=== PATIENT | female | born 1970 | race Caucasian/White ===

== ENCOUNTER 2019-09-19 12:14 | Emergency (ER) | payer BC ==
[2019-09-19 12:33] VITALS: TEMP 98.9
[2019-09-19 12:45] VITALS: RESP 20
[2019-09-19 14:15] LABS: Basophils # (A) 0.1 k/uL (0-0.2); Basophils % (A) 1 %; Eosinophils # (A) 0.1 k/uL (0-0.7); Eosinophils % (A) 1 %; HCT 45.5 % (34.0-46.0); HGB 14.8 gm/dL (11.4-16.0); Lymphocytes # (A) 1.4 k/uL (1.0-4.8); Lymphocytes % (A) 11 %; MCH 29.5 pg (25.0-35.0); MCHC 32.6 g/dL (31.0-37.0); MCV 90.5 fL (80.0-100.0); Mean Platelet Volume 6.7; Monocytes # (A) 0.7 k/uL (0-1.0); Monocytes % (A) 6 %; Neutrophils # (A) 9.8 k/uL (1.3-7.7); Neutrophils % (A) 80 %; Platelet Count 287 k/uL (150-450); RBC 5.03 m/uL (3.80-5.40); RDW 13.1 % (11.5-15.5); WBC 12.2 k/uL (3.8-10.6)
[2019-09-19] MEDS ORDERED: cefTRIAXone IN SWFI 1,000 MG/10 ML SYRINGE IVP STA (14:16)
[2019-09-19] MEDS ORDERED: KETOROLAC 30 MG/ML 1 ML VIAL IVP STA (14:16)
[2019-09-19] MEDS ORDERED: DEXAMETHASONE SOD PHOSPHATE 10 MG/ML 1 ML VIAL IV STA (14:16)
--- NOTE | 2019-09-19 14:21 | ED ---
ENT HPI - General Chief complaint: ENT Stated complaint: Thyroid issues Time Seen by Provider: 09/19/19 13:02 Source: patient, RN notes reviewed, old records reviewed Mode of arrival: ambulatory Limitations: no limitations - History of Present Illness Initial comments: Patient is a 49-year-old female who presents emergency Department today with sore throat, neck swelling and pain. Patient reports that she was diagnosed with a goiter" at [facility] but she was sent home on antibiotics, but is unsure why. Patient reports after she was discharged she reports that it seems like it's worsening swelling into her neck and she's having a worsening time swallowing. Patient reports that she was treated with Augmentin. Patient states that she has had some chills, no specific fever. She reports that she did test negative for strep while at [facility]. Patient states that since being discharged she is had worsening symptoms and felt that she needed be reevaluated for second opinion. Patient is nondiabetic. She denies any dental infections. - Related Data Home Medications Medication Instructions Recorded Confirmed Amoxic-Pot Clav 875-125Mg 1 tab PO Q12HR 09/19/19 09/19/19 [Augmentin 875-125] Tylenol Liquid 15 ml PO Q4H PRN 09/19/19 09/19/19 Allergies Allergy/AdvReac Type Severity Reaction Status Date / Time No Known Allergies Allergy Verified 09/19/19 13:56 Review of Systems ROS Statement: Those systems with pertinent positive or pertinent negative responses have been documented in the HPI. ROS Other: All systems not noted in ROS Statement are negative. Past Medical History Past Medical History: Thyroid Disorder History of Any Multi-Drug Resistant Organisms: None Reported Past Surgical History: Cholecystectomy, Hysterectomy Past Psychological History: No Psychological Hx Reported Smoking Status: Current every day smoker Past Alcohol Use History: Occasional Past Drug Use History: None Reported General Exam - General Exam Comments Initial Comments: 49-year-old female. Alert and oriented. Limitations: no limitations General appearance: alert, in no apparent distress Head exam: Present: atraumatic, normocephalic, normal inspection Eye exam: Present: normal appearance, PERRL, EOMI. Absent: scleral icterus, conjunctival injection, periorbital swelling ENT exam: Present: normal exam, mucous membranes moist, other (Patient has tenderness, swelling to the anterior neck. Patient has some swelling over the left tonsil area, no significant abscess to drain on physical exam.) Neck exam: Present: tenderness (swelling voer anterior neck ). Absent: normal i nspection, meningismus, lymphadenopathy Respiratory exam: Present: normal lung sounds bilaterally. Absent: respiratory distress, wheezes, rales, rhonchi, stridor Cardiovascular Exam: Present: regular rate, normal rhythm, normal heart sounds. Absent: systolic murmur, diastolic murmur, rubs, gallop, clicks GI/Abdominal exam: Present: soft, normal bowel sounds. Absent: distended, tenderness, guarding, rebound, rigid Extremities exam: Present: normal inspection, full ROM, normal capillary refill. Absent: tenderness, pedal edema, joint swelling, calf tenderness Back exam: Present: normal inspection Neurological exam: Present: alert, oriented X3, CN II-XII intact Psychiatric exam: Present: normal affect, normal mood Skin exam: Present: warm, dry, intact, normal color. Absent: rash Course Vital Signs 09/19/19 09/19/19 09/19/19 12:28 12:45 12:50 Temperature 98.9 F Pulse Rate 86 85 Respiratory 18 20 Rate Blood Pressure 179/115 141/110 141/110 O2 Sat by Pulse 100 98 97 Oximetry 09/19/19 09/19/19 09/19/19 13:00 13:10 13:20 Temperature Pulse Rate Respiratory Rate Blood Pressure 141/110 149/100 149/100 O2 Sat by Pulse 96 96 98 Oximetry 09/19/19 09/19/19 09/19/19 13:30 13:33 13:40 Temperature Pulse Rate Respiratory 20 Rate Blood Pressure 149/100 154/111 O2 Sat by Pulse 98 97 Oximetry 09/19/19 09/19/19 09/19/19 13:50 14:00 15:00 Temperature Pulse Rate 77 76 Respiratory 20 20 Rate Blood Pressure 154/111 148/100 142/105 O2 Sat by Pulse 99 98 98 Oximetry - Reevaluation(s) Reevaluation #1: 09/19/19 15:25 CT from 09/16/2019 shows displacement of the oropharynx towards the right side with homogenous soft tissue mass involving the retropharyngeal tissues extending from the soft palate all the way down to the epiglottis. Nonvisualization of the left sublingual gland. Cannot exclude malignancy versus lymphoma. Patient's ultrasound of the thyroid shows the right lobe measures 5.7 x 2.3 x 1.9 cm. They're small spongiform nodule within the right mid lobe measuring 7 x 6 x 6 L. The left lobe of the thyroid measured 7.6 x 4.2 x 3.3 cm. There is a very hypoechoic nodule within the medial upper pole measuring 4.7 x 2.3 x 2.2 cm. This is somewhat lobulated contour and is very hypoechoic. There is advised to call nodule in the middle left lower gland measuring 5.6 x 4.5 x 3 C or abscess. Overall impression shows TR 5 nodule left upper pole as well as tear 3 nodule measuring 5.6 cm left mid gland. Ultrasound-guided kite a biopsy of both of these lesions as recommended. Medical Decision Making - Medical Decision Making 49-year-old female presents emergency department today with worsening difficulty in swallowing, sore throat and neck swelling. After requesting records, she Was treated for retropharyngeal abscess at this [facility] as well as transferred to [facility]. She was discharged diagnosed with "goiter" and also put reports that she was on antibiotics. She was discharged just one day ago, but presents with worsening swelling and pain with swallowing. She has no signs of respiratory disress at this time. On exam she does have some left- sided peritonsillar swelling concern for abscess, but not large enough to drain with needle decompression in ED. A second CT soft tissue neck was completed today and there is extensive swelling into the neck as well. Patient case was discussed with Dr. Acosta. Patient was given IV Solu-Medrol, Decadron and Toradol, and rocephin. She also will be starting to receive Unasyn. After discussing with Dr. Acosta, my attending physician, he discussed the case with on-call ENT Dr. Gamez. He recommended transferring her to a higher level of care due to the findings of the computed tomography scan showing migration of the abscess to the anterior neck above the thyroid as well. Patient was informed of these results is agreeable to transfer. Discussed with Dr. Garibay whom agrees to accept transfer. Blood cultures obtained. - Lab Data Result diagrams: 09/19/19 13:50 09/19/19 13:50 Lab Results 01/24/20 01/24/20 01/24/20 Range/Units 13:50 13:50 13:50 WBC 12.2 H (3.8-10.6) k/uL RBC 5.03 (3.80-5.40) m/uL Hgb 14.8 (11.4-16.0) gm/dL Hct 45.5 (34.0-46.0) % MCV 90.5 (80.0-100.0) fL MCH 29.5 (25.0-35.0) pg MCHC 32.6 (31.0-37.0) g/dL RDW 13.1 (11.5-15.5) % Plt Count 287 (150-450) k/uL Neutrophils % 80 % Lymphocytes % 11 % Monocytes % 6 % Eosinophils % 1 % Basophils % 1 % Neutrophils # 9.8 H (1.3-7.7) k/uL Lymphocytes # 1.4 (1.0-4.8) k/uL Monocytes # 0.7 (0-1.0) k/uL Eosinophils # 0.1 (0-0.7) k/uL Basophils # 0.1 (0-0.2) k/uL Sodium 139 (137-145) mmol/L Potassium 3.5 (3.5-5.1) mmol/L Chloride 104 (98-107) mmol/L Carbon Dioxide 27 (22-30) mmol/L Anion Gap 8 mmol/L BUN 7 (7-17) mg/dL Creatinine 0.65 (0.52-1.04) mg/dL Est GFR (CKD-EPI)AfAm >90 (>60 ml/min/1.73 sqM) Est GFR (CKD-EPI)NonAf >90 (>60 ml/min/1.73 sqM) Glucose 86 (74-99) mg/dL Plasma Lactic Acid Dilip 0.7 (0.7-2.0) mmol/L Calcium 8.4 (8.4-10.2) mg/dL Total Bilirubin 0.8 (0.2-1.3) mg/dL AST 27 (14-36) U/L ALT 31 (4-34) U/L Alkaline Phosphatase 97 (38-126) U/L Total Protein 6.0 L (6.3-8.2) g/dL Albumin 3.3 L (3.5-5.0) g/dL TSH 2.480 (0.465-4.680) mIU/L - Radiology Data Radiology results: report reviewed CT soft tissue neck shows a large hypodense collection extending from the superior right lobe of the thyroid into the prevertebral space into the left tonsillar pillar suspicious for forming abscess. Wall formation inferiorly is poorly visualized. This better visualize the tonsillar pillar. Disposition Clinical Impression: Peritonsillar abscess, Pharyngeal abscess, Failure of outpatient treatment Disposition: DC/TRNS INTERMEDIATE CARE FAC Condition: Stable Is patient prescribed a controlled substance at d/c from ED?: No Referrals: None,Stated [Primary Care Provider] - 1-2 days Time of Disposition: 16:27 - Out of Hospital Transfer - Req. Specs Out of Hospital Transfer - Requested Specifics: Other Emergency Center ([facility])
[2019-09-19 14:28] LABS: ALT 31 U/L (4-34); AST 27 U/L (14-36); African American GFR (CKD) >90 (>60 ml/min/1.73 sqM); Albumin 3.3 g/dL (3.5-5.0); Alkaline Phosphatase 97 U/L (38-126); Anion Gap 8 mmol/L; Blood Urea Nitrogen 7 mg/dL (7-17); Calcium 8.4 mg/dL (8.4-10.2); Carbon Dioxide 27 mmol/L (22-30); Chloride 104 mmol/L (98-107); Glucose 86 mg/dL (74-99); Non-African American GFR(CKD) >90 (>60 ml/min/1.73 sqM); Potassium 3.5 mmol/L (3.5-5.1); Sodium 139 mmol/L (137-145); Total Bilirubin 0.8 mg/dL (0.2-1.3)
[2019-09-19] MEDS ORDERED: AMPICILLIN-SULBACTAM 3 GM in SODIUM CHLORIDE 0.9% 100 ML IVPB STA (15:02)
--- NOTE | 2019-09-19 15:05 | CT ---
EXAMINATION TYPE: CT soft tissue neck w con DATE OF EXAM: 09/19/2019 COMPARISON: None available HISTORY: Neck swelling, dysphagia, dyspnea, history of retropharyngeal abscess CT DLP: 260 mGycm CONTRAST: Patient injected with 100 mL of Isovue 300. TECHNIQUE: Axial images at 3 mm thick sections. Reconstructed images in the coronal plane and sagitt al plane are reviewed. FINDINGS: Limited CT sections are obtained the lung apices. The lung apices appear clear. CT neck: There is some limitation in differentiating the torus tubarius and fossa of Rosenmuller. Mas ticator spaces are normal. Paranasal sinuses and mastoid air cells are clear. Parotid glands appear normal and symmetrical. Submandibular glands, are normal. Parapharyngeal spaces are somewhat effaced. There is fullness within the tonsils. On the left tonsil which has mass effect on the posterior pharynx there is a 1.1 cm hypodensity extending from the level of the angle of the jaw inferior. This extends in an irregular fashion into the prevertebral space w ith narrowing of the hypopharynx. There is poor visualization of the airway at the level of the vocal cords. Irregular hypodensity appears to extend across the midline may be as large is 5.3 x 2.7 cm. S eries 201 image 37. This extends lateral to the hyoid and appears to be effacing the superior thyroid medially In addition to the scalloping medial border of the right lobe thyroid, the thyroid is markedly enlarg ed. There is some heterogeneity to the inferior enlarged right lobe thyroid which extends in the supe rior mediastinum which is displacing the trachea to the right. No suspicious acute osseous abnormality is evident. IMPRESSIONS: 1. Large hypodense collection extending from the superior right lobe thyroid into the prevertebral sp dajuan and into the left tonsillar pillar suspicious for forming abscess. Wall formation inferiorly is p oorly visualized. This better visualized in the tonsillar pillar. Report was called to the emergency room [facility] by Dr. Rivera by telephone at 1501 hours at the time of interpretation.
[2019-09-19 15:52] VITALS: PULSE 76
[2019-09-19 17:04] VITALS: BP 157/106
== END 2019-09-19 18:09 ==
LOC: EC 12:14
DX: J36 Peritonsillar abscess (principal); Z53.9 Procedure and treatment not carried out, unspecified reason; F17.200 Nicotine dependence, unspecified, uncomplicated
CPT/HCPCS: 36415; 80053; 84443; 83605; 85025; 87040; 70491; 99285; 96365; 96375 ×3; J1100; J0696; J1885; J0295; Q9967

== ENCOUNTER 2022-04-11 15:46 | Emergency (ER) | payer BC ==
[2022-04-11 16:15] VITALS: BP 150/97; PULSE 87; RESP 18; TEMP 98.7
[2022-04-11] MEDS ORDERED: KETOROLAC 15 MG/ML 1 ML VIAL IM STA (19:22)
[2022-04-11] MEDS ORDERED: HYDROcodone/APAP 5-325MG 1 EACH TAB PO STA (19:22)
--- NOTE | 2022-04-11 19:26 | ED ---
Back Pain HPI - General Chief Complaint: Back Pain/Injury Stated Complaint: hip & back pain Time Seen by Provider: 04/11/22 19:02 Source: patient, RN notes reviewed - History of Present Illness Initial Comments: This is a pleasant 51-year-old female who fell about 3 weeks ago was seen at [facility]. Patient ended up having a computed tomography scan done there which showed bulging disks at L4 and L5. Patient was given a corticosteroid impact. Patient states she is getting radiation of pain down the back of both legs. Patient denying any problems with bowel movements or urination. Patient states she is able to ambulate although this increases the pain. Pain located in the lower back and down the back of his, exacerbated by movement. Patient subsequently saw her regular physician and has physical therapy ordered which starts on . However she thinks pain is getting worse. This reason she is being seen here for evaluation. No headache, no fever or chills, no changes in vision or hearing, no sore throat or difficulty with speech, no neck pain, no chest pain or shortness of breath, no abdominal pain, no nausea or vomiting, no changes in urination or bowel movements,no skin rashes or lesions. Past medical, surgical, social, and family history reviewed. MD Complaint: back pain - Related Data Home Medications Medication Instructions Recorded Confirmed Amoxic-Pot Clav 875-125Mg 1 tab PO Q12HR 09/19/19 09/19/19 [Augmentin 875-125] Tylenol Liquid 15 ml PO Q4H PRN 09/19/19 09/19/19 Previous Rx's Medication Instructions Recorded Cyclobenzaprine [Flexeril] 10 mg PO TID PRN #20 tab 04/11/22 HYDROcodone/APAP 5-325MG [Morris 1 tab PO Q6HR PRN 3 Days #12 tab 04/11/22 5-325] methylPREDNISolone Dose Pack 4 mg PO DIRECTED #21 tab 04/11/22 [Medrol Dose Pack] Allergies Allergy/AdvReac Type Severity Reaction Status Date / Time No Known Allergies Allergy Verified 04/11/22 16:14 Review of Systems ROS Statement: Those systems with pertinent positive or pertinent negative responses have been documented in the HPI. ROS Other: All systems not noted in ROS Statement are negative. Past Medical History Past Medical History: Thyroid Disorder History of Any Multi-Drug Resistant Organisms: None Reported Past Surgical History: Cholecystectomy, Hysterectomy Past Psychological History: No Psychological Hx Reported Past Alcohol Use History: Occasional Past Drug Use History: None Reported General Exam - General Exam Comments Initial Comments: She does not appear to be ill or toxic. Vital signs reviewed. Patient afebrile General appearance: alert, in no apparent distress Head exam: Present: atraumatic, normocephalic, normal inspection Eye exam: Present: normal appearance, PERRL, EOMI. Absent: scleral icterus, conjunctival injection, periorbital swelling ENT exam: Present: normal exam, mucous membranes moist Neck exam: Present: normal inspection, full ROM. Absent: tenderness, meningismus, lymphadenopathy Respiratory exam: Present: normal lung sounds bilaterally. Absent: respiratory distress, wheezes, rales, rhonchi, stridor Cardiovascular Exam: Present: regular rate, normal rhythm, normal heart sounds. Absent: systolic murmur, diastolic murmur, rubs, gallop, clicks GI/Abdominal exam: Present: soft, normal bowel sounds. Absent: distended, tenderness, guarding, rebound, rigid Rectal exam: Present: normal rectal tone (Chaperoned by female RN), hemorrhoids (Noninflamed external hemorrhoid), other (Normal sensation to the saddle area. No evidence of cauda equina syndrome) Extremities exam: Present: normal inspection, full ROM, normal capillary refill. Absent: tenderness, pedal edema, joint swelling, calf tenderness Back exam: Present: normal inspection, paraspinal tenderness, other (Straight leg raise is negative bilaterally. Patient does have some pain with Clinton's maneuver.). Absent: full ROM (Patient motion limited by pain with regards for flexion, extension, rotation, lateral bending), muscle spasm, vertebral tenderness Neurological exam: Present: alert, oriented X3, CN II-XII intact, normal gait, reflexes normal, other (Great toe I sensor strength is +5 out of 5). Absent: motor sensory deficit Psychiatric exam: Present: normal affect, normal mood Skin exam: Present: warm, dry, intact, normal color. Absent: rash Course Vital Signs 04/11/22 16:11 Temperature 98.7 F Pulse Rate 87 Respiratory 18 Rate Blood Pressure 150/97 O2 Sat by Pulse 99 Oximetry Medical Decision Making - Medical Decision Making -There are no red flags for concerning back pathology. Specifically: -No history of cancer, this is not a mass effect, MRI not indicated. -No anticoagulation, this is not a bleed. -No fevers, no IVDU, this is not an infectious process. -Patient already had a computed tomography scan and has had no subsequent trauma. Imaging not indicated at this point. -With a normal neuro exam, and no urinary or bowel retention or incontinence, there is no clinical sign of motor defect or cauda equina - MRI is not indicated at this point. -No pulsating abdominal mass or risk factors for AAA. -Pain is relieved with rest, which is also less concerning. -I do not believe that x-rays or emergent MRI is indicated at this time. -We will treat symptomatically and discharge home with follow up instructions. -Stretching/strengthening exercise given to patient and they will be referred to physical therapy Patient instructed to proceed with physical therapy. We'll treat the patient with pain medication. We'll refer to the back specialist. Dr. Fajardo. Patient was told to return to the ER for any signs or symptoms worsen. Told to return immediately if any other problems arise. All questions answered. Treatment plan discussed. Patient in agreement Every effort has been made to ensure accuracy of this dictation. However, due to the limitations of electronic medical records and dictation devices, errors in charting still occur. Vice President Payment Dr. Lazar Disposition Clinical Impression: Lumbar strain, Sciatica Disposition: HOME SELF-CARE Condition: Good Instructions (If sedation given, give patient instructions): Sciatica (ED), Lumbar Radiculopathy (ED) Additional Instructions: No headache, no fever or chills, no changes in vision or hearing, no sore throat or difficulty with speech, no neck pain, no chest pain or shortness of breath, no abdominal pain, no nausea or vomiting, no changes in urination or bowel movements, no numbness or tingling, no extremity pain, no skin rashes or lesions. Past medical, surgical, social, and family history reviewed. Is patient prescribed a controlled substance at d/c from ED?: No Referrals: Carina Fajardo DO [Doctor of Osteopathic Medicine] - As Soon As Possible Time of Disposition: 20:02
== END 2022-04-11 20:30 | disposition home or self-care (01) ==
LOC: EC 15:46
DX: S39.012A Strain of muscle, fascia and tendon of lower back, initial encounter (principal); M54.42 Lumbago with sciatica, left side; M54.41 Lumbago with sciatica, right side; E07.9 Disorder of thyroid, unspecified; W19.XXXA Unspecified fall, initial encounter
CPT/HCPCS: 99283; 96372; J1885

== ENCOUNTER 2024-09-07 11:38 | Inpatient (IN) | payer BC, OTHER ==
[2024-09-07] MEDS ORDERED: ACETAMINOPHEN TAB 325 MG TAB PO PRN (16:26)
[2024-09-07] MEDS ORDERED: MELATONIN 3 MG TABLET PO PRN (16:26)
[2024-09-07] MEDS ORDERED: NALOXONE 0.4 MG/ML 1 ML VIAL IV PRN (16:26)
[2024-09-07] MEDS ORDERED: ONDANSETRON 4 MG/2 ML VIAL IVP PRN (16:26)
[2024-09-07] MEDS ORDERED: VANCOMYCIN IV PER PHARMACY 1 EACH MISC MISCELLANE PRN (16:31)
[2024-09-07] MEDS ORDERED: lisinopriL 10 MG TAB PO PRN (16:37)
[2024-09-07] MEDS ORDERED: ALBUTEROL NEBULIZED 2.5 MG/3 ML INHALATION PRN (16:37)
--- NOTE | 2024-09-07 16:43 | P.HPIM ---
History of Present Illness H&P Date: 09/07/24 Patient is a 54-year-old female with past medical history o asthma, lumbar degenerative disc disease, hypothyroidism, spinal stenosis, arthritis, hysterectomy, cholecystectomy, anxiety, obesity, trigger finger of the right middle finger status post release July 2024, former smoker with [id number] smoking history, quit in 2019. MRSA infection of the neck in 2019 requiring hospitalization in surgical exploration at [facility], including partial thyroid lobectomy due to infections., Who initially presented to [facility] ER on 09/01 with right-sided chin pain and swelling that she noted that day upon awakening, was sent home on oral antibiotics amoxicillin with diagnosis of dental abscess, she returned to the ER on 09/02 with worsening symptoms, pain, swelling. No fevers, chills, Patient denies any recent illnesses including infectious disease, joint pain, wounds, rashes, sinus pain, pressure, nasal or ear drainage. She had almost all her teeth extracted 25 years ago, has 4 teeth left. She was admitted to [facility] for management of cellulitis, was started on Unasyn and vancomycin, additionally received a dose of Solu-Medrol to help with swelling. CT neck and soft tissue with IV contrast showed mild inflammatory fat stranding about the subcutaneous fat of the chin, no discrete abscess identified, no significant osseous abnormality or evidence of acute osteomyelitis. Patient initially started having clinical improvement however, on 09/05 her pain became difficult to control, 09/07 in the morning the swelling, erythema and pain worsened, that prompted transfer to our institution. Review medical records that were sent with the patient. Patient had blood work done on 09/07 that showed no leukocytosis WBC 6.4, stable hemoglobin of 13.2, platelet count normal 266, sodium 137, potassium 4.1, creatinine 0.8, GFR 91. Upon arrival, patient was seen examined at bedside, complaining of headache, right-sided chin pain, pressure, warmness, swelling, redness. No SOB, odynophagia, chest pain. The swelling and tenderness were marked with blue marker, I believe that the most accurate based the middle one patient agreed. Pertinent positives and negatives as discussed in HPI, a complete review of systems was performed and all other systems are negative. Patient seen and examined at bedside. Vital signs reviewed General: nontoxic, no distress, appears at stated age, obese Derm: warm, dry. Right sided chin with tenderness around 2 x 2 cm with erythema and warmness, submandibular lymphadenopathy Head: atraumatic, normocephalic, symmetric Eyes: EOMI, no lid lag, anicteric sclera, pupils equal round reactive to light ENT: Nose and ears atraumatic. Oral exam showed around 4 teeth left, poor dentition, no wound, ulceration. Neck: No thyromegaly, supple Mouth: no lip lesion, mucus membranes moist Cardiovascular: S1S2 reg, no murmur, no edema Lungs: clear to auscultation bilateral, no rhonchi, no rales, no wheeze, no accessory muscle use Abdominal: soft, nontender to palpation, no guarding, no appreciable organo megaly Ext: no gross muscle atrophy, muscle strength muscle strength 5 out of 5 in all 4 extremities, no contractures Neuro: CN II-XII grossly intact Psych: Alert, oriented, appropriate affect Assessment/Plan: Right-sided facial cellulitis -Continue with vancomycin, started cefepime, MRSA swab -ID consulted -Monitor CBC and BMP -Repeat CT with IV contrast -Pain control with Percocet, morphine, tramadol, ordered Protonix HTN: Continue home lisinopril Hypothyroidism: Continue home levothyroxine 25 Insomnia: Continue home trazodone, melatonin Vitamin D deficiency: Continue vitamin D Chronic intermittent asthma: Continue as needed albuterol The patient is admitted with an anticipated [greater] than 2 midnight stay as [inpatient/observation] status for evaluation of right facial cellulitis CODE STATUS: Full code DVT prophylaxis: Lovenox Anticipated discharge date: TB Anticipated discharge place: Home A total of 40 minutes was spent on the care of this complex patient more than 50% of the time was spent in counseling and care coordination. Past Medical History Past Medical History: Hypertension, Thyroid Disorder Additional Past Medical History / Comment(s): X-smoker quit 2020 Goiter 2019. Lisinopril as needed at home for occasional elevated BP. Patient monitors her BP daily. History of Any Multi-Drug Resistant Organisms: None Reported, MRSA Date of last positivie culture/infection: MRSA throat wall August 2019 MDRO Source:: throat Past Surgical History: Cholecystectomy, Hysterectomy Additional Past Surgical History / Comment(s): Partial thyroidectomy 2019 Past Anesthesia/Blood Transfusion Reactions: No Reported Reaction Past Psychological History: No Psychological Hx Reported Smoking Status: Former smoker Past Alcohol Use History: Occasional Past Drug Use History: None Reported Additional Drug Use History / Comment(s): [id number] 220. Occasional alcohol- less than weekly. - Past Family History Mother Family Medical History: No Reported History Father Family Medical History: Cancer Additional Family Medical History / Comment(s): Advanced cancer at time of his (lungs, brain, abdomen)-unsure of primary site. Medications and Allergies Home Medications Medication Instructions Recorded Confirmed Type Albuterol Inhaler [Ventolin Hfa 2 puff INHALATION RT-Q6H PRN 09/07/24 09/07/24 History Inhaler] Amoxicillin 1,000 mg PO Q12H 09/07/24 09/07/24 History Cholecalciferol (Vitamin D3) 50 mcg PO DAILY 09/07/24 09/07/24 History [Vitamin D3 (50 Mcg = 2000 Iu)] Ibuprofen [Motrin] 800 mg PO TID PRN 09/07/24 09/07/24 History Levothyroxine Sodium [Synthroid] 25 mcg PO DAILY 09/07/24 09/07/24 History lisinopriL [Zestril] 10 mg PO DAILY PRN 09/07/24 09/07/24 History traZODone HCL [Desyrel] 50 mg PO HS 09/07/24 09/07/24 History Allergies Allergy/AdvReac Type Severity Reaction Status Date / Time No Known Allergies Allergy Verified 09/07/24 15:43 Physical Exam Vitals: Vital Signs Temp Pulse Resp BP Pulse Ox 09/07/24 15:54 98.2 F 64 16 165/88 99 Intake and Output 09/07/24 09/07/24 09/07/24 06:59 14:59 22:59 Other: Weight 92.079 kg Thrombosis Risk Factor Assmnt - Choose All That Apply Each Factor Represents 1 point: Age 41-60 years, Obesity (BMI >25) Other Risk Factors: No Other congenital or acquired thrombophilia - If yes, enter type in comment: No Thrombosis Risk Factor Assessment Total Risk Factor Score: 2 Thrombosis Risk Factor Assessment Level: Low Risk
[2024-09-07] MEDS: MORPHINE SULFATE 2 MG/ML SYRINGE IVP PRN (16:55)
[2024-09-07] MEDS: VANCOMYCIN 1,750 MG in SODIUM CHLORIDE 0.9% 500 ML 500 ML IVPB SCH (17:44)
[2024-09-07] MEDS: DICLOFENAC SODIUM GEL 50 GM TUBE TOPICAL SCH (17:48)
[2024-09-07] MEDS: HYDROcodone/APAP 5-325MG 1 EACH TAB PO PRN (23:02)
[2024-09-07] MEDS: traZODone HCL 50 MG TAB PO SCH (23:02)
[2024-09-08] MEDS: LEVOTHYROXINE 25 MCG TAB PO SCH (06:17)
[2024-09-08] MEDS: PANTOPRAZOLE 40 MG TABLET PO SCH (08:14)
[2024-09-08] MEDS: ENOXAPARIN 40 MG/0.4 ML SYRINGE SQ SCH (08:14)
[2024-09-08] MEDS: CHOLECALCIFEROL 25 MCG (1000 IU) TABLET PO SCH (08:14)
[2024-09-08 09:11] LABS: BUN/Creat Ratio 10.25 Ratio (12.00-20.00); Blood Urea Nitrogen 8.2 mg/dL (9.0-27.0); Calcium 9.2 mg/dL (8.7-10.3); Carbon Dioxide 30.2 mmol/L (21.6-31.8); Chloride 107 mmol/L (96-109); Glucose 93 mg/dL (70-110); Potassium 5.2 mmol/L (3.5-5.5); Sodium 143 mmol/L (135-145)
[2024-09-08 09:34] LABS: Basophils # (A) 0.02 X 10*3/uL (0.00-0.10); Basophils % (A) 0.4 %; Eosinophils # (A) 0.11 X 10*3/uL (0.04-0.35); Eosinophils % (A) 2.1 %; HCT 43.7 % (37.2-46.3); HGB 13.8 g/dL (12.0-15.0); Lymphocytes # (A) 1.81 X 10*3/uL (0.90-5.00); Lymphocytes % (A) 35.3 %; MCH 28.5 pg (27.0-32.0); MCHC 31.6 g/dL (32.0-37.0); MCV 90.3 FL (80.0-97.0); Mean Platelet Volume 9.2 FL (9.5-12.2); Monocytes # (A) 0.52 X 10*3/uL (0.20-1.00); Monocytes % (A) 10.1 %; NRBC Per 100 WBC 0 X 10*3/uL (0.00-0.01); Neutrophils # (A) 2.63 X 10*3/uL (1.80-7.70); Neutrophils % (A) 51.3 %; Platelet Count 288 X 10*3/uL (140-440); RBC 4.84 X 10*6/uL (4.10-5.20); RDW 14.1 % (11.5-14.5); WBC 5.13 X 10*3/uL (4.50-10.00)
[2024-09-08] MEDS: AMPICILLIN-SULBACTAM 1.5 GM in SODIUM CHLORIDE 0.9% 50 ML IVPB SCH (12:35)
--- NOTE | 2024-09-08 15:55 | P.PN ---
Subjective Progress Note Date: 09/08/24 Patient is a 54-year-old female with past medical history o asthma, lumbar degenerative disc disease, hypothyroidism, spinal stenosis, arthritis, hysterectomy, cholecystectomy, anxiety, obesity, trigger finger of the right middle finger status post release July 2024, former smoker with [id number] smoking history, quit in 2019. MRSA infection of the neck in 2019 requiring hospitalization in surgical exploration at [facility], including partial thyroid lobectomy due to infections., Who initially presented to [facility] ER on 09/01 with right-sided chin pain and swelling that she noted that day upon awakening, was sent home on oral antibiotics amoxicillin with diagnosis of dental abscess, she returned to the ER on 09/02 with worsening symptoms, pain, swelling. No fevers, chills, Patient denies any recent illnesses including infectious disease, joint pain, w ounds, rashes, sinus pain, pressure, nasal or ear drainage. She had almost all her teeth extracted 25 years ago, has 4 teeth left. She was admitted to [facility] for management of cellulitis, was started on Unasyn and vancomycin, additionally received a dose of Solu-Medrol to help with swelling. CT neck and soft tissue with IV contrast showed mild inflammatory fat stranding about the subcutaneous fat of the chin, no discrete abscess identified, no significant osseous abnormality or evidence of acute osteomyelitis. Patient initially started having clinical improvement however, on 09/05 her pain became difficult to control, 09/07 in the morning the swelling, erythema and pain worsened, that prompted transfer to our institution. Review medical records that were sent with the patient. Patient had blood work done on 09/07 that showed no leukocytosis WBC 6.4, stable hemoglobin of 13.2, platelet count normal 266, sodium 137, potassium 4.1, creatinine 0.8, GFR 91. Upon arrival, patient was seen examined at bedside, complaining of headache, right-sided chin pain, pressure, warmness, swelling, redness. No SOB, odynophagia, chest pain. The swelling and tenderness were marked with blue marker, I believe that the most accurate based the middle one patient agreed. Pertinent positives and negatives as discussed in HPI, a complete review of systems was performed and all other systems are negative. Patient seen and examined at bedside. 09/08/2024 Patient seen and examined at bedside. No events overnight. Patient continues to have pain surrounding right chin. Began on Unasyn 3 mg IVPB every 6 hours, and continue vancomycin 1750 mg IVPB every 12 hours. Discontinue cefepime. ID is following. MRSA swab pending. Vital signs reviewed General: nontoxic, no distress, appears at stated age, obese Derm: warm, dry. Right sided chin induration with tenderness around 2 x 2 cm with submandibular lymphadenopathy. No erythema, ulceration, or exudate. Head: atraumatic, normocephalic, symmetric Eyes: EOMI, no lid lag, anicteric sclera, pupils equal round reactive to light ENT: Nose and ears atraumatic. Oral exam showed around 4 teeth left, poor dentition, no wound, mild ulceration. Neck: No thyromegaly, supple Mouth: no lip lesion, mucus membranes moist Cardiovascular: S1S2 reg, no murmur, no edema Lungs: clear to auscultation bilateral, no rhonchi, no rales, no wheeze, no accessory muscle use Abdominal: soft, nontender to palpation, no guarding, no appreciable organomegaly Ext: no gross muscle atrophy, Neuro: no gross motor deficits Psych: Alert, oriented, appropriate affect Assessment/Plan: Right-sided facial cellulitis History of MRSA infection -Continue with vancomycin IV, monitor renal function for toxicity, started on IV Unasyn 3 g every 6 hours MRSA swab pending Plan CT soft tissue of mandible with IV contrast if no signs of improvement -Continue Vale 5-325 mg every 4 hour, Percocet 5-325 mg, monitor for sedation, tramadol 50 mg at bedtime all as needed for pain - ID following Chronic medical conditions: HTN: Continue home lisinopril Hypothyroidism: Continue home levothyroxine 25 Insomnia: Continue home trazodone, melatonin Vitamin D deficiency: Continue vitamin D Chronic intermittent asthma: Continue as needed albuterol CODE STATUS: Full code DVT prophylaxis: Lovenox Anticipated discharge date: TB Anticipated discharge place: Home I have seen and evaluated the patient today. Discussed with the resident and agree with the residents finding and plan as documented in the resident's note. Changes highlighted in blue font. Objective - Vital Signs Vital signs: Vital Signs Temp 97.9 F 09/08/24 07:03 Pulse 68 09/08/24 07:03 Resp 16 09/08/24 07:03 BP 141/94 09/08/24 07:03 Pulse Ox 98 09/08/24 07:03 FiO2 Intake & Output 09/07/24 09/08/24 09/08/24 18:59 06:59 18:59 Weight 92.079 kg Other: # Voids 1 1 - Labs CBC & Chem 7: 09/08/24 04:43 09/08/24 04:43
[2024-09-08] MEDS: AMPICILLIN-SULBACTAM 3 GM in SODIUM CHLORIDE 0.9% 100 ML IVPB SCH (17:23)
[2024-09-08] MEDS ORDERED: CEFEPIME 2 GM in SODIUM CHLORIDE 0.9% 100 ML IVPB SCH (18:00)
[2024-09-08] MEDS ORDERED: AMPICILLIN-SULBACTAM 3 GM in SODIUM CHLORIDE 0.9% 50 ML IVPB SCH (18:00)
[2024-09-08] MEDS: oxyCODONE-APAP 5-325MG 1 EACH TAB PO PRN (19:39)
[2024-09-08] MEDS: DOCUSATE 100 MG CAP PO PRN (20:50)
--- NOTE | 2024-09-08 21:07 | P.CONS ---
History of Present Illness - Reason for Consult Consult date: 09/08/24 Chin abscess Requesting physician: Shirley Marcus - Chief Complaint Right side chin pain swelling redness x few days - History of Present Illness Patient is a 54-year-old female with a past medical history of again for hypertension thyroid disorder, previous history of MRSA infection to the neck surgical site post thyroid surgery in 2019 patient appears to have new problem to the right side of the chin pain swelling and some redness on 09/01/2024 the patient was diagnosed with a possible dental abscess and has been treated with a amoxicillin however patient did not have any improvement and did have progressive pain swelling redness to the right side of the chin patient was initially evaluated at [facility] patient did have CT of the neck and soft tissue concerning for mild inflammatory fat stranding and subcutaneous fat of the chin no discrete abscess or acute osteomyelitis patient subsequently was transferred to [facility] patient has been better continue cefepime and vancomycin cefepime was switched to Unasyn infectious disease was consulted for right narayan cellulitis patient denies fever or any chills she has been complaining of pain to the right side of the chin area to be throbbing almost 10 out of 10 in severity with associated swelling and redness without any radiation patient did have some pain with pressure on the right lower jaw teeth but denies any difficulty chewing or difficulty swallowing no nausea vomiting abdominal pain no diarrhea patient did have white count of 5.13 creatinine 0.8, Review of Systems Positive point and negatives has been mentioned in the HPI, complete review of systems was performed and all other systems are negative Past Medical History Past Medical History: Hypertension, Thyroid Disorder Additional Past Medical History / Comment(s): X-smoker quit 2019 Goiter 2019. Lisinopril as needed at home for occasional elevated BP. Patient monitors her BP daily. History of Any Multi-Drug Resistant Organisms: None Reported, MRSA Year Discovered:: MRSA throat wall August 2019 MDRO Source:: throat Past Surgical History: Cholecystectomy, Hysterectomy Additional Past Surgical History / Comment(s): Partial thyroidectomy 2019 Past Anesthesia/Blood Transfusion Reactions: No Reported Reaction Past Psychological History: No Psychological Hx Reported Smoking Status: Former smoker Past Alcohol Use History: Occasional Past Drug Use History: None Reported Additional Drug Use History / Comment(s): [id number] . Occasional alcohol- less than weekly. - Past Family History Mother Family Medical History: No Reported History Father Family Medical History: Cancer Additional Family Medical History / Comment(s): Advanced cancer at time of his (lungs, brain, abdomen)-unsure of primary site. Medications and Allergies Home Medications Medication Instructions Recorded Confirmed Type Albuterol Inhaler [Ventolin Hfa 2 puff INHALATION RT-Q6H PRN 09/07/24 09/07/24 History Inhaler] Amoxicillin 1,000 mg PO Q12H 09/07/24 09/07/24 History Cholecalciferol (Vitamin D3) 50 mcg PO DAILY 09/07/24 09/07/24 History [Vitamin D3 (50 Mcg = 2000 Iu)] Ibuprofen [Motrin] 800 mg PO TID PRN 09/07/24 09/07/24 History Levothyroxine Sodium [Synthroid] 25 mcg PO DAILY 09/07/24 09/07/24 History lisinopriL [Zestril] 10 mg PO DAILY PRN 09/07/24 09/07/24 History traZODone HCL [Desyrel] 50 mg PO HS 09/07/24 09/07/24 History Allergies Allergy/AdvReac Type Severity Reaction Status Date / Time No Known Allergies Allergy Verified 09/07/24 15:43 Physical Exam Vitals: Vital Signs Temp Pulse Resp BP Pulse Ox 09/08/24 07:03 97.9 F 68 16 141/94 98 09/08/24 01:48 98.0 F 68 17 148/90 97 09/07/24 19:38 98.3 F 79 16 152/93 99 09/07/24 15:54 98.2 F 64 16 165/88 99 Intake and Output 09/07/24 09/08/24 09/08/24 22:59 06:59 14:59 Other: # Voids 1 1 Weight 92.079 kg GENERAL DESCRIPTION: Middle-aged female lying in bed, no distress. No tachypnea or accessory muscle of respiration use. HEENT: Shows Pallor , no scleral icterus. Oral mucous membrane is dry. No pharyngeal erythema or thrush, mild cellular changes have small swelling which are tender to touch but no drainage NECK: Trachea central, no thyromegaly. LUNGS: Unlabored breathing. Clear to auscultation anteriorly. No wheeze or crackle. HEART: S1, S2, regular rate and rhythm. No loud murmur ABDOMEN: Soft, no tenderness , guarding or rigidity, no organomegaly EXTREMITIES: No edema of feet. SKIN: No rash, no masses palpable. NEUROLOGICAL: The patient is awake, alert, oriented x3, mood and affect normal. Results CBC & Chem 7: 09/08/24 04:43 09/08/24 04:43 Labs: Abnormal Lab Results - Last 24 Hours (Table) 09/08/24 09/08/24 Range/Units 04:43 04:43 MCHC 31.6 L (32.0-37.0) g/dL MPV 9.2 L (9.5-12.2) FL BUN 8.2 L (9.0-27.0) mg/dL BUN/Creatinine Ratio 10.25 L (12.00-20.00) Ratio Assessment and Plan (1) Facial cellulitis Current Visit: Yes Status: Acute Code(s): L03.211 - CELLULITIS OF FACE SNOMED Code(s): 627581038 Plan: 1patient presented to hospital with right side chin area pain swelling and redness that has been going on for about a week failing outpatient oral amoxicillin therapy concerning for possible dental origin did have a CT did not show any drainable abscess 2-we will continue with vancomycin pharmacy to dose however and increase the dose of Unasyn to 3 every 6 hours see clinical response 3-if the area started to drain to get cultures that would guide further antibiotic therapy We will follow on clinical condition and cultures to further adjust medication if needed Thank you for this consultation we will follow the patient along with you Dictation was produced using [employer] dictation software. please excuse any grammatical, word or spelling errors. Time with Patient: Greater than 30
[2024-09-08] MEDS: traMADol 50 MG TAB PO PRN (23:50)
[2024-09-09] MEDS: VANCOMYCIN TROUGH DUE 1 EACH MISC MISCELLANE ONE (06:02)
[2024-09-09 06:17] LABS: African American GFR (CKD) >90 (>60 ml/min/1.73 sqM); Anion Gap 5 mmol/L; Blood Urea Nitrogen 11 mg/dL (7-17); Calcium 9.7 mg/dL (8.4-10.2); Carbon Dioxide 32 mmol/L (22-30); Chloride 103 mmol/L (98-107); Glucose 98 mg/dL (74-99); Non-African American GFR(CKD) 85 (>60 ml/min/1.73 sqM); Potassium 4.7 mmol/L (3.5-5.1); Sodium 140 mmol/L (137-145)
[2024-09-09 10:40] LABS: HCT 45.9 % (37.2-46.3); HGB 14.7 g/dL (12.0-15.0); MCH 28.8 pg (27.0-32.0); Mean Platelet Volume 9.1 FL (9.5-12.2); NRBC Per 100 WBC 0 X 10*3/uL (0.00-0.01); Platelet Count 296 X 10*3/uL (140-440); RDW 13.8 % (11.5-14.5); WBC 5.05 X 10*3/uL (4.50-10.00)
--- NOTE | 2024-09-09 12:23 | P.PN ---
Subjective Progress Note Date: 09/09/24 Patient is a 54-year-old female with past medical history o asthma, lumbar degenerative disc disease, hypothyroidism, spinal stenosis, arthritis, hysterectomy, cholecystectomy, anxiety, obesity, trigger finger of the right middle finger status post release July 2024, former smoker with [id number] smoking history, quit in 2019. MRSA infection of the neck in 2019 requiring hospitalization in surgical exploration at [facility], including partial thyroid lobectomy due to infections., Who initially presented to [facility] ER on 09/01 with right-sided chin pain and swelling that she noted that day upon awakening, was sent home on oral antibiotics amoxicillin with diagnosis of dental abscess, she returned to the ER on 09/02 with worsening symptoms, pain, swelling. No fevers, chills, Patient denies any recent illnesses including infectious disease, joint pain, w ounds, rashes, sinus pain, pressure, nasal or ear drainage. She had almost all her teeth extracted 25 years ago, has 4 teeth left. She was admitted to [facility] for management of cellulitis, was started on Unasyn and vancomycin, additionally received a dose of Solu-Medrol to help with swelling. CT neck and soft tissue with IV contrast showed mild inflammatory fat stranding about the subcutaneous fat of the chin, no discrete abscess identified, no significant osseous abnormality or evidence of acute osteomyelitis. Patient initially started having clinical improvement however, on 09/05 her pain became difficult to control, 09/07 in the morning the swelling, erythema and pain worsened, that prompted transfer to our institution. Review medical records that were sent with the patient. Patient had blood work done on 09/07 that showed no leukocytosis WBC 6.4, stable hemoglobin of 13.2, platelet count normal 266, sodium 137, potassium 4.1, creatinine 0.8, GFR 91. Upon arrival, patient was seen examined at bedside, complaining of headache, right-sided chin pain, pressure, warmness, swelling, redness. No SOB, odynophagia, chest pain. The swelling and tenderness were marked with blue marker, I believe that the most accurate based the middle one patient agreed. Pertinent positives and negatives as discussed in HPI, a complete review of systems was performed and all other systems are negative. Patient seen and examined at bedside. 09/08/2024 Patient seen and examined at bedside. No events overnight. Patient continues to have pain surrounding right chin. Began on Unasyn 3 mg IVPB every 6 hours, and continue vancomycin 1750 mg IVPB every 12 hours. Discontinue cefepime. ID is following. MRSA swab pending. 09/09/2024 Patient seen and examined at bedside no acute events overnight. She remains afebrile and patient continues to have pain surrounding chin. Continue with IV vancomycin and IV Unasyn 3 g every 6 hours. ID is following case. MRSA swab pending. Today's labs significant for WBC 5.05, sodium 140, potassium 4.7, bicarb 32. Vital signs reviewed General: nontoxic, no distress, appears at stated age, obese Derm: warm, dry. Right sided chin induration with tenderness around 2 x 2 cm with submandibular lymphadenopathy. Mild erythema, no ulceration, or exudate. Head: atraumatic, normocephalic, symmetric Eyes: EOMI, no lid lag, anicteric sclera, pupils equal round reactive to light ENT: Nose and ears atraumatic. Oral exam showed around 4 teeth left, poor dentition, no wound, mild ulceration. Neck: No thyromegaly, supple Mouth: no lip lesion, mucus membranes moist Cardiovascular: S1S2 reg, no murmur, no edema Lungs: clear to auscultation bilateral, no rhonchi, no rales, no wheeze, no accessory muscle use Abdominal: soft, nontender to palpation, no guarding, no appreciable organomegaly Ext: no gross muscle atrophy, Neuro: no gross motor deficits Psych: Alert, oriented, appropriate affect Assessment/Plan: Right-sided facial cellulitis History of MRSA infection -Continue with IV vancomycin, monitor renal function for toxicity, started on IV Unasyn 3 g every 6 hours MRSA swab with no growth CT facial bone with contrast pending -Continue Pinson 5-325 mg every 4 hour, Percocet 5-325 mg, monitor for sedation, tramadol 50 mg at bedtime all as needed for pain - ID following Chronic medical conditions: HTN: Continue home lisinopril Hypothyroidism: Continue home levothyroxine 25 Insomnia: Continue home trazodone, melatonin Vitamin D deficiency: Continue vitamin D Chronic intermittent asthma: Continue as needed albuterol CODE STATUS: Full code DVT prophylaxis: Lovenox Anticipated discharge date: Anticipated discharge place: Home I have seen and evaluated the patient today. Discussed with the resident and agree with the residents finding and plan as documented in the resident's note. Changes highlighted in blue font. Objective - Vital Signs Vital signs: Vital Signs Temp 98.1 F 09/09/24 07:15 Pulse 70 09/09/24 07:15 Resp 16 09/09/24 07:15 BP 136/98 09/09/24 07:15 Pulse Ox 99 09/09/24 07:15 FiO2 Intake & Output 09/08/24 09/09/24 09/09/24 18:59 06:59 18:59 Intake Total 200 Balance 200 Intake: Intake, IV Titration 200 Amount Ampicillin-Sulbactam 3 gm 200 In Sodium Chloride 0.9% 100 ml @ 200 mls/hr IVPB Q6HR [facility] Rx#:[id number] Other: # Voids 3 - Labs CBC & Chem 7: 09/09/24 05:35 09/09/24 05:35 Labs: Abnormal Lab Results - Last 24 Hours (Table) 09/08/24 09/08/24 09/08/24 Range/Units 04:43 04:43 04:43 MCHC 31.6 L (32.0-37.0) g/dL MPV 9.2 L (9.5-12.2) FL Carbon Dioxide (22-30) mmol/L BUN 8.2 L (9.0-27.0) mg/dL BUN/Creatinine Ratio 10.25 L (12.00-20.00) Ratio C-Reactive Protein 2.20 H (0.00-0.80) mg/dL 09/09/24 Range/Units 05:35 MCHC (32.0-37.0) g/dL MPV (9.5-12.2) FL Carbon Dioxide 32 H (22-30) mmol/L BUN (9.0-27.0) mg/dL BUN/Creatinine Ratio (12.00-20.00) Ratio C-Reactive Protein (0.00-0.80) mg/dL
--- NOTE | 2024-09-09 15:00 | CT ---
EXAMINATION TYPE: CT facial bones w con DATE OF EXAM: 09/09/2024 COMPARISON: None CLINICAL INDICATION: Female, 54 years old with history of chin induration; PHH, Chin induration TECHNIQUE: CT scan of the facial bones is performed with IV Contrast, patient injected with 100 mL of Isovue [address] DLP: [address] CTDI: mGy Automated exposure control for dose reduction was used. TECHNIQUE: CT scan of the sinuses is performed without contrast, axial images are obtained, coronal r eformatted images are also reviewed. FINDINGS: The paranasal sinuses including the frontal, ethmoid, sphenoid, and maxillary sinuses bila terally are well-aerated without abnormal opacification. The ostiomeatal complex is patent bilateral ly on the coronal images. Visualized portion of mastoid air cells show no abnormal opacification. The globes are intact bilate rally. The osseous structures are intact and there is no focal lytic or sclerotic osseous lesion. IMPRESSION: No significant abnormality seen of the facial bones. [facility] Pérez, , 09/09/2024 2:57 PM
--- NOTE | 2024-09-10 07:52 | P.PN ---
Subjective Progress Note Date: 09/09/24 Principal diagnosis: Reason for follow-up is possible abscess to the chin Patient is a 54-year-old female with a past medical history of again for hypertension thyroid disorder, previous history of MRSA infection to the neck surgical site post thyroid surgery in 2019 patient developing pain and swelling to the right side of the chin CT of the neck soft tissue done at outside facility and show any abscess. On today's evaluation that is 09/09/2023, Patient is afebrile this morning patient denies having any chest pain shortness of breath or cough, the patient is currently on room air, patient denies any abdominal pain no diarrhea no nausea no vomiting patient still complaining of pain and swelling to the right side of the chin area did not mention any improvement. Patient white count is 5.05, creatinine 0.80 Vanco trough is 15.4 Objective - Vital Signs Vital signs: Vital Signs Temp 98.1 F 09/09/24 11:38 Pulse 70 09/09/24 11:38 Resp 16 09/09/24 11:38 BP 156/80 09/09/24 11:38 Pulse Ox 98 09/09/24 11:38 FiO2 Intake & Output 09/08/24 09/09/24 09/09/24 18:59 06:59 18:59 Intake Total 200 Balance 200 Intake: Intake, IV Titration 200 Amount Ampicillin-Sulbactam 3 gm 200 In Sodium Chloride 0.9% 100 ml @ 200 mls/hr IVPB Q6HR [facility] Rx#:[id number] Other: # Voids 3 - Exam GENERAL DESCRIPTION: Middle-age female up in bed in no distress HEENT : Right side of the chin did have minimal swelling no significant redness or drainage RESPIRATORY SYSTEM: Unlabored breathing , decreased breath sounds at bases HEART: S1 S2 regular rate and rhythm , ABDOMEN: Soft , no tenderness EXTREMITIES: No edema feet - Labs CBC & Chem 7: 09/09/24 05:35 09/09/24 05:35 Labs: Abnormal Lab Results - Last 24 Hours (Table) 09/09/24 09/09/24 Range/Units 05:35 05:35 MPV 9.1 L (9.5-12.2) FL Carbon Dioxide 32 H (22-30) mmol/L Microbiology - Last 24 Hours (Table) 09/07/24 17:00 Nasal Screen MRSA/MSSA - Final Nasal Swab Assessment and Plan (1) Facial cellulitis Current Visit: Yes Status: Acute Code(s): L03.211 - CELLULITIS OF FACE SNOMED Code(s): 477830380 Plan: 1patient presented to hospital with right side chin area pain swelling and redness that has been going on for about a week failing outpatient oral amoxicillin therapy concerning for possible dental origin did have a CT did not show any drainable abscess 2-patient is currently being treated with vancomycin pharmacy to dose and Unasyn to 3 every 6 hours 3-CT has been ordered to rule out any abscess results will be followed Dictation was produced using [employer]. dictation software. please excuse any grammatical, word or spelling errors. Time with Patient: Less than 30
[2024-09-10 09:49] LABS: BUN/Creat Ratio 13.88 Ratio (12.00-20.00); Blood Urea Nitrogen 11.1 mg/dL (9.0-27.0); Calcium 9.1 mg/dL (8.7-10.3); Carbon Dioxide 27.7 mmol/L (21.6-31.8); Chloride 104 mmol/L (96-109); Glucose 98 mg/dL (70-110); Potassium 4.6 mmol/L (3.5-5.5); Sodium 141 mmol/L (135-145)
[2024-09-10 09:51] LABS: HCT 39.7 % (37.2-46.3); HGB 13.4 g/dL (12.0-15.0); MCH 29.3 pg (27.0-32.0); MCHC 33.8 g/dL (32.0-37.0); MCV 86.9 FL (80.0-97.0); Mean Platelet Volume 8.9 FL (9.5-12.2); NRBC Per 100 WBC 0 X 10*3/uL (0.00-0.01); Platelet Count 262 X 10*3/uL (140-440); RBC 4.57 X 10*6/uL (4.10-5.20); WBC 5.91 X 10*3/uL (4.50-10.00)
--- NOTE | 2024-09-10 11:47 | P.PN ---
Subjective Progress Note Date: 09/10/24 Patient is a 54-year-old female with past medical history o asthma, lumbar degenerative disc disease, hypothyroidism, spinal stenosis, arthritis, hysterectomy, cholecystectomy, anxiety, obesity, trigger finger of the right middle finger status post release July 2024, former smoker with 35-bvin-xrhh smoking history, quit in 2019. MRSA infection of the neck in 2019 requiring hospitalization in surgical exploration at [facility], including partial thyroid lobectomy due to infections., Who initially presented to [facility] ER on 09/01 with right-sided chin pain and swelling that she noted that day upon awakening, was sent home on oral antibiotics amoxicillin with diagnosis of dental abscess, she returned to the ER on 09/02 with worsening symptoms, pain, swelling. No fevers, chills, Patient denies any recent illnesses including infectious disease, joint pain, w ounds, rashes, sinus pain, pressure, nasal or ear drainage. She had almost all her teeth extracted 25 years ago, has 4 teeth left. She was admitted to [facility] for management of cellulitis, was started on Unasyn and vancomycin, additionally received a dose of Solu-Medrol to help with swelling. CT neck and soft tissue with IV contrast showed mild inflammatory fat stranding about the subcutaneous fat of the chin, no discrete abscess identified, no significant osseous abnormality or evidence of acute osteomyelitis. Patient initially started having clinical improvement however, on 09/05 her pain became difficult to control, 09/07 in the morning the swelling, erythema and pain worsened, that prompted transfer to our institution. Review medical records that were sent with the patient. Patient had blood work done on 09/07 that showed no leukocytosis WBC 6.4, stable hemoglobin of 13.2, platelet count normal 266, sodium 137, potassium 4.1, creatinine 0.8, GFR 91. Upon arrival, patient was seen examined at bedside, complaining of headache, right-sided chin pain, pressure, warmness, swelling, redness. No SOB, odynophagia, chest pain. The swelling and tenderness were marked with blue marker, I believe that the most accurate based the middle one patient agreed. Pertinent positives and negatives as discussed in HPI, a complete review of systems was performed and all other systems are negative. Patient seen and examined at bedside. 09/08/2024 Patient seen and examined at bedside. No events overnight. Patient continues to have pain surrounding right chin. Began on Unasyn 3 mg IVPB every 6 hours, and continue vancomycin 1750 mg IVPB every 12 hours. Discontinue cefepime. ID is following. MRSA swab pending. 09/09/2024 Patient seen and examined at bedside no acute events overnight. She remains afebrile and patient continues to have pain surrounding chin. Continue with IV vancomycin and IV Unasyn 3 g every 6 hours. ID is following case. MRSA swab pending. Today's labs significant for WBC 5.05, sodium 140, potassium 4.7, bicarb 32. 09/10/2024 Patient seen and examined at bedside with no acute events overnight. She continues to be afebrile, with mild pain on chin. Continue with IV vancomycin and IV Unasyn 3 g every 6 hours. ID is following case. Lab workup unremarkable. CT facial bone small abscess may be present in deep tissue, with low-density crescentic collection in right midline adjacent to mandible. MRSA swab with no growth. Vital signs reviewed General: nontoxic, no distress, appears at stated age, obese Derm: warm, dry. Right sided chin induration with tenderness around 2 x 2 cm with submandibular lymphadenopathy. Mild erythema, no ulceration, or exudate. Head: atraumatic, normocephalic, symmetric Eyes: EOMI, no lid lag, anicteric sclera, pupils equal round reactive to light ENT: Nose and ears atraumatic. Oral exam showed around 4 teeth left, poor dentition, no wound, mild ulceration. Neck: No thyromegaly, supple Mouth: no lip lesion, mucus membranes moist Cardiovascular: S1S2 reg, no murmur, no edema Lungs: clear to auscultation bilateral, no rhonchi, no rales, no wheeze, no accessory muscle use Abdominal: soft, nontender to palpation, no guarding, no appreciable organomegaly Ext: no gross muscle atrophy, Neuro: no gross motor deficits Psych: Alert, oriented, appropriate affect Assessment/Plan: Right-sided facial cellulitis History of MRSA infection -Continue with IV vancomycin, monitor renal function for toxicity, started on IV Unasyn 3 g every 6 hours MRSA swab with no growth CT facial bone CT facial bone small abscess may be present in deep tissue, with low-density crescentic collection in right midline adjacent to mandible. Discussed findings with radiology -Continue Shannan 5-325 mg every 4 hour, Percocet 5-325 mg, monitor for sedation, tramadol 50 mg at bedtime all as needed for pain - ID following Maxillofacial surgery consulted Chronic medical conditions: HTN: Continue home lisinopril Hypothyroidism: Continue home levothyroxine 25 Insomnia: Continue home trazodone, melatonin Vitamin D deficiency: Continue vitamin D Chronic intermittent asthma: Continue as needed albuterol CODE STATUS: Full code DVT prophylaxis: Lovenox Anticipated discharge date: D Anticipated discharge place: Home I have seen and evaluated the patient today. Discussed with the resident and agree with the residents finding and plan as documented in the resident's note. Changes highlighted in blue font. Objective - Vital Signs Vital signs: Vital Signs Temp 97.8 F 09/10/24 02:00 Pulse 77 09/10/24 02:00 Resp 14 09/10/24 02:00 BP 146/81 09/10/24 02:00 Pulse Ox 98 09/10/24 02:00 FiO2 Intake & Output 09/09/24 09/10/24 09/10/24 18:59 06:59 18:59 Intake Total 740 Balance 740 Intake: Intake, IV Titration 200 Amount Ampicillin-Sulbactam 3 gm 200 In Sodium Chloride 0.9% 100 ml @ 200 mls/hr IVPB Q6HR [facility] Rx#:[id number] Oral 540 Other: # Voids 1 - Labs CBC & Chem 7: 09/10/24 03:21 09/10/24 03:21 Labs: Abnormal Lab Results - Last 24 Hours (Table) 09/09/24 Range/Units 05:35 MPV 9.1 L (9.5-12.2) [place] Microbiology - Last 24 Hours (Table) 09/07/24 17:00 Nasal Screen MRSA/MSSA - Final Nasal Swab
--- NOTE | 2024-09-10 19:58 | CONS ---
CONSULTATION CHIEF COMPLAINT: "My chin is swollen and hurts." HISTORY OF PRESENT ILLNESS: The patient is a 54-year-old female who had chin swelling approximately 1 week ago and presented to the [facility] where she was started on amoxicillin for a dental abscess. The swelling increased and the pain also increased over that time and she went back to the hospital and was admitted for IV antibiotics and pain management. The pain and swelling continued to increase and she was then transferred to [facility] where she has been undergoing IV antibiotics, vancomycin, and Unasyn over the last 2 days. The patient states that the swelling is slightly better and that the pain is better. PAST MEDICAL HISTORY: Significant for hypothyroidism, hypertension, asthma, and arthritis. HOME MEDICATIONS: Include, 1. Albuterol. 2. Vitamin D. 3. Ibuprofen p.r.n. 4. Synthroid. 5. Lisinopril. 6. Desyrel. SOCIAL HISTORY: Unremarkable. FAMILY HISTORY: Negative. ALLERGIES: She has no known drug allergies. PHYSICAL EXAMINATION: GENERAL: Reveals the patient to be alert and oriented x3. VITAL SIGNS: Her vital signs are stable. She is afebrile. HEENT: She has mild soft tissue swelling of the right chin with tenderness to palpation. Intraoral examination reveals tooth #27 to have caries and is tender to percussion. There is mild swelling of the vestibule in the area of tooth #27. There are no other lesions noted intraorally. ASSESSMENT: Right chin cellulitis possibly due to necrotic tooth #27. PLAN: The patient is to follow up in my office upon discharge for the extraction of tooth #27. MMODL / IJN: [id number] /
[2024-09-11] MEDS: VANCOMYCIN TROUGH DUE 1 EACH MISC MISCELLANE ONE (06:23)
[2024-09-11 06:59] LABS: African American GFR (CKD) >90 (>60 ml/min/1.73 sqM); Non-African American GFR(CKD) 88 (>60 ml/min/1.73 sqM)
--- NOTE | 2024-09-11 08:50 | P.PN ---
Subjective Progress Note Date: 09/10/24 Principal diagnosis: Reason for follow-up is possible abscess to the chin Patient is a 54-year-old female with a past medical history of again for hypertension thyroid disorder, previous history of MRSA infection to the neck surgical site post thyroid surgery in 2019 patient developing pain and swelling to the right side of the chin CT of the neck soft tissue done at outside facility and show any abscess. On today's evaluation that is 09/10/2024,the patient denies any fever or any chills, patient is breathing comfortably on room air, the patient denies chest pain shortness of breath and no significant cough, patient denies abdominal pain, no nausea vomiting or diarrhea. Patient mention improvement in the pain to the right side chin area swelling has decreased. Patient white count is 5.[address] was negative for any abscess Objective - Vital Signs Vital signs: Vital Signs Temp 98.0 F 09/10/24 07:15 Pulse 57 L 09/10/24 07:15 Resp 17 09/10/24 07:15 BP 129/81 09/10/24 07:15 Pulse Ox 97 09/10/24 07:15 FiO2 Intake & Output 09/09/24 09/10/24 09/10/24 18:59 06:59 18:59 Intake Total 740 300 Balance 740 300 Intake: Intake, IV Titration 200 Amount Ampicillin-Sulbactam 3 gm 200 In Sodium Chloride 0.9% 100 ml @ 200 mls/hr IVPB Q6HR [facility] Rx#:[id number] Oral 540 300 Other: # Voids 1 - Exam GENERAL DESCRIPTION: Middle-age female up in bed in no distress HEENT : Right side of the chin did have minimal swelling no significant redness or drainage RESPIRATORY SYSTEM: Unlabored breathing , decreased breath sounds at bases HEART: S1 S2 regular rate and rhythm , ABDOMEN: Soft , no tenderness EXTREMITIES: No edema feet - Labs CBC & Chem 7: 09/10/24 03:21 09/11/24 06:05 Labs: Abnormal Lab Results - Last 24 Hours (Table) 09/10/24 Range/Units 03:21 MPV 8.9 L (9.5-12.2) [place] Microbiology - Last 24 Hours (Table) 09/07/24 17:00 Nasal Screen MRSA/MSSA - Final Nasal Swab Assessment and Plan (1) Facial cellulitis Current Visit: Yes Status: Acute Code(s): L03.211 - CELLULITIS OF FACE SNOMED Code(s): 118655647 (2) Infected tooth Current Visit: Yes Status: Acute Code(s): K04.7 - PERIAPICAL ABSCESS WITHOUT SINUS SNOMED Code(s): 306424894 Plan: 1patient presented to hospital with right side chin area pain swelling and redness that has been going on for about a week failing outpatient oral amoxicillin therapy concerning for possible dental origin did have a CT did not show any drainable abscess with a repeat CT at this facility did not show any abscess 2-patient will be continued with vancomycin pharmacy to dose and Unasyn to 3 every 6 hours await oral surgery evaluation for possible extraction of the infected tooth Dictation was produced using [employer] dictation software. please excuse any grammatical, word or spelling errors.
[2024-09-11 09:33] LABS: HCT 41.4 % (37.2-46.3); HGB 13.6 g/dL (12.0-15.0); MCH 28.9 pg (27.0-32.0); MCHC 32.9 g/dL (32.0-37.0); MCV 88.1 FL (80.0-97.0); NRBC Per 100 WBC 0 X 10*3/uL (0.00-0.01); Platelet Count 268 X 10*3/uL (140-440); RDW 13.9 % (11.5-14.5); WBC 5.22 X 10*3/uL (4.50-10.00)
--- NOTE | 2024-09-11 14:33 | P.PN ---
Subjective Progress Note Date: 09/11/24 No new complaints. ongoing pain and swelling of chin. Pt did set up a follow up appointment for her dentist on Sunday, 09/15. Can consider transitioning patient to PO abx and discharging before then, pending ID clearance. Gen: In NAD, non-toxic HEENT: normocephalic, atraumatic, hearing acuity is intant, mucous membranes moist CVS: perfusing all extremities well, no pitting edema, Respiratory: symmetric chest expansion, no accessory muscle use, GI: soft, NTTP, ND, : no suprapubic tenderness, no CVA tenderness MSK/Derm: no rashes, cyanosis Neuro: CN II-XII intact, no motor weakness, Psych: cooperative, euthymic mood, judgment and insight is intact Hospital course: Patient is a 54-year-old female with past medical history o asthma, lumbar degenerative disc disease, hypothyroidism, spinal stenosis, arthritis, hysterectomy, cholecystectomy, anxiety, obesity, trigger finger of the right middle finger status post release July 2024, former smoker with 67-ptsm-lpxd smoking history, quit in 2019. MRSA infection of the neck in 2019 requiring hospitalization in surgical exploration at [facility], including partial thyroid lobectomy due to infections., Who initially presented to [facility] ER on 09/01 with right-sided chin pain and swelling that she noted that day upon awakening, was sent home on oral antibiotics amoxicillin with diagnosis of dental abscess, she returned to the ER on 09/02 with worsening symptoms, pain, swelling. No fevers, chills, Patient denies any recent illnesses including infectious disease, joint pain, wounds, rashes, sinus pain, pressure, nasal or ear drainage. She had almost all her teeth extracted 25 years ago, has 4 teeth left. She was admitted to [facility] for management of cellulitis, was started on Unasyn and vancomycin, additionally received a dose of Solu-Medrol to help with swelling. CT neck and soft tissue with IV contrast showed mild inflammatory fat stranding about the subcutaneous fat of the chin, no discrete abscess identified, no significant osseous abnormality or evidence of acute ost eomyelitis. Patient initially started having clinical improvement however, on 09/05 her pain became difficult to control, 09/07 in the morning the swelling, erythema and pain worsened, that prompted transfer to our institution. Review medical records that were sent with the patient. Patient had blood work done on 09/07 that showed no leukocytosis WBC 6.4, stable hemoglobin of 13.2, platelet count normal 266, sodium 137, potassium 4.1, creatinine 0.8, GFR 91. Upon arrival, patient was seen examined at bedside, complaining of headache, right-sided chin pain, pressure, warmness, swelling, redness. No SOB, odynophagia, chest pain. The swelling and tenderness were marked with blue marker, I believe that the most accurate based the middle one patient agreed. 09/08/2024 Patient seen and examined at bedside. No events overnight. Patient continues to have pain surrounding right chin. Began on Unasyn 3 mg IVPB every 6 hours, and continue vancomycin 1750 mg IVPB every 12 hours. Discontinue cefepime. ID is following. MRSA swab pending. 09/09/2024 Patient seen and examined at bedside no acute events overnight. She remains afebrile and patient continues to have pain surrounding chin. Continue with IV vancomycin and IV Unasyn 3 g every 6 hours. ID is following case. MRSA swab pending. Today's labs significant for WBC 5.05, sodium 140, potassium 4.7, bicarb 32. 09/10/2024 Patient seen and examined at bedside with no acute events overnight. She continues to be afebrile, with mild pain on chin. Continue with IV vancomycin and IV Unasyn 3 g every 6 hours. ID is following case. Lab workup unremarkable. CT facial bone small abscess may be present in deep tissue, with low-density crescentic collection in right midline adjacent to mandible. MRSA swab with no growth. Assessment/Plan: Right-sided facial cellulitis History of MRSA infection -Continue with IV vancomycin, monitor renal function for toxicity, started on IV Unasyn 3 g every 6 hours MRSA swab with no growth CT facial bone CT facial bone small abscess may be present in deep tissue, with low-density crescentic collection in right midline adjacent to mandible. Discussed findings with radiology -Continue [place] 5-325 mg every 4 hour, Percocet 5-325 mg, monitor for sedation, tramadol 50 mg at bedtime all as needed for pain - ID following, ongoing vancomycin Maxillofacial surgery consulted, they would like to follow up with patient outpatient Chronic medical conditions: HTN: Continue home lisinopril Hypothyroidism: Continue home levothyroxine 25 Insomnia: Continue home trazodone, melatonin Vitamin D deficiency: Continue vitamin D Chronic intermittent asthma: Continue as needed albuterol CODE STATUS: Full code DVT prophylaxis: Lovenox Anticipated discharge date: Anticipated discharge place: Home Objective - Vital Signs Vital signs: Vital Signs Temp 97.7 F 09/11/24 08:00 Pulse 61 09/11/24 08:00 Resp 16 09/11/24 08:00 BP 158/88 09/11/24 08:00 Pulse Ox 98 09/11/24 08:00 FiO2 Intake & Output 09/10/24 09/11/24 09/11/24 18:59 06:59 18:59 Intake Total 620 540 Balance 620 540 Intake: Oral 620 540 Other: Voiding Method Toilet Toilet # Voids 2 - Labs CBC & Chem 7: 09/11/24 06:05 09/11/24 06:05 Labs: Abnormal Lab Results - Last 24 Hours (Table) 09/11/24 Range/Units 06:05 MPV 9.0 L (9.5-12.2) FL
--- NOTE | 2024-09-11 16:09 | P.PN ---
Subjective Progress Note Date: 09/11/24 Principal diagnosis: Reason for follow-up is possible abscess to the chin Patient is a 54-year-old female with a past medical history of again for hypertension thyroid disorder, previous history of MRSA infection to the neck surgical site post thyroid surgery in 2019 patient developing pain and swelling to the right side of the chin CT of the neck soft tissue done at outside facility and show any abscess. On today's evaluation that is 09/11/2024,the patient remains to be afebrile, patient is on room air not requiring supplemental oxygen and denies any shortness of breath no chest pain or cough.Patient denies having any nausea or vomiting, no abdominal pain and no diarrhea has been reported patient pain to the chin area has decreased in intensity. Patient white count is 5.22, creatinine 0.78 Vanco level is 19,000 Objective - Vital Signs Vital signs: Vital Signs Temp 97.7 F 09/11/24 08:00 Pulse 61 09/11/24 08:00 Resp 16 09/11/24 08:00 BP 158/88 09/11/24 08:00 Pulse Ox 98 09/11/24 08:00 FiO2 Intake & Output 09/10/24 09/11/24 09/11/24 18:59 06:59 18:59 Intake Total 620 540 Balance 620 540 Intake: Oral 620 540 Other: Voiding Method Toilet Toilet # Voids 2 - Exam GENERAL DESCRIPTION: Middle-age female up in bed in no distress HEENT : Right side of the chin did have minimal swelling no significant redness or drainage RESPIRATORY SYSTEM: Unlabored breathing , decreased breath sounds at bases HEART: S1 S2 regular rate and rhythm , ABDOMEN: Soft , no tenderness EXTREMITIES: No edema feet - Labs CBC & Chem 7: 09/11/24 06:05 09/11/24 06:05 Labs: Abnormal Lab Results - Last 24 Hours (Table) 09/11/24 Range/Units 06:05 MPV 9.0 L (9.5-12.2) FL Assessment and Plan (1) Facial cellulitis Current Visit: Yes Status: Acute Code(s): L03.211 - CELLULITIS OF FACE SNOMED Code(s): 738773752 (2) Infected tooth Current Visit: Yes Status: Acute Code(s): K04.7 - PERIAPICAL ABSCESS WITHOUT SINUS SNOMED Code(s): 942309653 Plan: 1patient presented to hospital with right side chin area pain swelling and redness that has been going on for about a week failing outpatient oral amoxicillin therapy concerning for possible dental origin did have a CT did not show any drainable abscess with a repeat CT at this facility did not show any abscess 2-patient has been evaluated by oral surgery concerning for infected tooth #27 and planning for extraction in the outpatient setting continue Unasyn discontinue vancomycin Dictation was produced using [employer] dictation software. please excuse any grammatical, word or spelling errors. Time with Patient: Less than 30
[2024-09-11] MEDS ORDERED: VANCOMYCIN 1,500 MG in SODIUM CHLORIDE 0.9% 500 ML 500 ML IVPB SCH (20:00)
[2024-09-12 05:08] LABS: African American GFR (CKD) 88 (>60 ml/min/1.73 sqM); Non-African American GFR(CKD) 76 (>60 ml/min/1.73 sqM)
--- NOTE | 2024-09-12 10:04 | P.DS ---
Providers Date of admission: 09/07/24 15:12 Expected date of discharge: 09/12/24 Attending physician: Shirley Marcus MD Consults: 09/07/24 16:28 Consult Physician Routine Consulting Provider: Minor Mcdonald Consult Reason/Comments: right chin cellulitis Do you want consulting provider notified?: Yes 09/10/24 10:33 Consult Physician Routine Consulting Provider: Jonas Real Consult Reason/Comments: Dental abscess Do you want consulting provider notified?: Yes Primary care physician: Jabier Rodriguez Hospital Course: Discharge diagnosis; Right-sided facial cellulitis Peritonsillar infection History of MRSA infection HTN Hypothyroidism Insomnia Vitamin D deficiency Chronic intermittent asthma Hospital course: HPI Patient is a 54-year-old female with past medical history o asthma, lumbar degenerative disc disease, hypothyroidism, spinal stenosis, arthritis, hysterectomy, cholecystectomy, anxiety, obesity, trigger finger of the right middle finger status post release July 2024, former smoker with [id number] smoking history, quit in 2019. MRSA infection of the neck in 2019 requiring hospitalization in surgical exploration at [facility], including partial thyroid lobectomy due to infections., Who initially presented to [facility] ER on 09/01 with right-sided chin pain and swelling that she noted that day upon awakening, was sent home on oral antibiotics amoxicillin with diagnosis of dental abscess, she returned to the ER on 09/02 with worsening symptoms, pain, swelling. No fevers, chills, Patient denies any recent illnesses including infectious disease, joint pain, wounds, rashes, sinus pain, pressure, nasal or ear drainage. She had almost all her teeth extracted 25 years ago, has 4 teeth left. She was admitted to [facility] for management of cellulitis, was started on Unasyn and vancomycin, additionally received a dose of Solu-Medrol to help with swelling. CT neck and soft tissue with IV contrast showed mild inflammatory fat stranding about the subcutaneous fat of the chin, no discrete abscess identified, no significant osseous abnormality or evidence of acute osteomyelitis. Patient initially started having clinical improvement however, on 09/05 her pain became difficult to control, 09/07 in the morning the swelling, erythema and pain worsened, that prompted transfer to our institution. Review medical records that were sent with the patient. Patient had blood work done on 09/07 that showed no leukocytosis WBC 6.4, stable hemoglobin of 13.2, p latelet count normal 266, sodium 137, potassium 4.1, creatinine 0.8, GFR 91. Upon arrival, patient was seen examined at bedside, complaining of headache, right-sided chin pain, pressure, warmness, swelling, redness. No SOB, odynophagia, chest pain. The swelling and tenderness were marked with blue marker, I believe that the most accurate based the middle one patient agreed. During hospital stay patient was seen by infectious disease and maxillofacial surgery. She continued on IV antibiotics vancomycin and Unasyn, MRSA swab was negative. CT facial bone suggested possible abscess and deep tissue with low- density concentric collection in the midline adjacent mandible. Patient is stable for discharge to home. She will begin on Augmentin for 14 days, acetaminophen as needed for pain. She is to follow-up with dentist for dental extraction. Gen: In NAD, non-toxic HEENT: normocephalic, atraumatic, hearing acuity is intant, mucous membranes moist CVS: perfusing all extremities well, no pitting edema, Respiratory: symmetric chest expansion, no accessory muscle use, GI: soft, NTTP, ND, : no suprapubic tenderness, no CVA tenderness MSK/Derm: no rashes, cyanosis Neuro: CN II-XII intact, no motor weakness, Psych: cooperative, euthymic mood, judgment and insight is intact A total of 36 minutes of time were spent preparing this complex discharge summary. Patient was discharged on 09/12/2024 at 954. I have seen and evaluated the patient today. Discussed with the resident and agree with the residents finding and plan as documented in the resident's note. Changes highlighted in blue font. Patient Condition at Discharge: Stable Plan - Discharge Summary Discharge Rx Participant: Yes New Discharge Prescriptions: New Amoxic-Pot Clav 875-125Mg [Augmentin 875-125] 1 tab PO BID 1 Days #28 tab Acetaminophen Tab [Tylenol] 650 mg PO Q6HR PRN #14 tab PRN Reason: Mild Pain Or Fever > 100.5 HYDROcodone/APAP 5-325MG [Viola 5-325] 1 tab PO Q4HR PRN 3 Days #18 tab PRN Reason: Breakthrough Pain Continue traZODone HCL [Desyrel] 50 mg PO HS Albuterol Inhaler [Ventolin Hfa Inhaler] 2 puff INHALATION RT-Q6H PRN PRN Reason: Shortness Of Breath Levothyroxine Sodium [Synthroid] 25 mcg PO DAILY lisinopriL [Zestril] 10 mg PO DAILY PRN PRN Reason: HIGH BP Ibuprofen [Motrin] 800 mg PO TID PRN PRN Reason: Pain Cholecalciferol (Vitamin D3) [Vitamin D3 (50 Mcg = 2000 Iu)] 50 mcg PO DAILY Discontinued Amoxicillin 1,000 mg PO Q12H Discharge Medication List Albuterol Inhaler [Ventolin Hfa Inhaler] 2 puff INHALATION RT-Q6H PRN 09/07/24 [History] Cholecalciferol (Vitamin D3) [Vitamin D3 (50 Mcg = 2000 Iu)] 50 mcg PO DAILY 09/07/24 [History] Ibuprofen [Motrin] 800 mg PO TID PRN 09/07/24 [History] Levothyroxine Sodium [Synthroid] 25 mcg PO DAILY 09/07/24 [History] lisinopriL [Zestril] 10 mg PO DAILY PRN 09/07/24 [History] traZODone HCL [Desyrel] 50 mg PO HS 09/07/24 [History] Acetaminophen Tab [Tylenol] 650 mg PO Q6HR PRN #14 tab 09/12/24 [Rx] Amoxic-Pot Clav 875-125Mg [Augmentin 875-125] 1 tab PO BID 1 Days #28 tab 09/12/24 [Rx] HYDROcodone/APAP 5-325MG [Viola 5-325] 1 tab PO Q4HR PRN 3 Days #18 tab 09/12/24 [Rx] Follow up Appointment(s)/Referral(s): Jonas Real DDS [STAFF PHYSICIAN] - 09/15/24 11:15 am (appointment in [facility] [address] [facility] [address] ) Jabier Rodriguez MD [Primary Care Provider] - 09/16/24 2:30 pm (appt with Nico Naidu NP in [facility] ([phone]) ) Patient Instructions/Handouts: Cellulitis (GEN) Activity/Diet/Wound Care/Special Instructions: Followup with PCP and dentist for tooth extraction. Discharge Disposition: HOME SELF-CARE
[2024-09-12 13:19] VITALS: BP 141/91; PULSE 71; RESP 16; TEMP 98.6
[2024-09-12 14:19] VITALS: BMI 35.9
--- NOTE | 2024-09-12 23:21 | P.PN ---
Subjective Progress Note Date: 09/12/24 Principal diagnosis: Reason for follow-up is possible abscess to the chin Patient is a 54-year-old female with a past medical history of again for hypertension thyroid disorder, previous history of MRSA infection to the neck surgical site post thyroid surgery in 2019 patient developing pain and swelling to the right side of the chin CT of the neck soft tissue done at outside facility and show any abscess. On today's evaluation that is 09/12/2024, the patient continues to be afebrile, the patient is on room air and breathing comfortably, the Pt denies having any c hest pain or cough, the patient denies having any abdominal pain no vomiting or any diarrhea still complaining of pain to the right cervical chain area and 1 more pain medication patient is scheduled to see the dental surgeon on Sunday. Patient did have a creatinine 0.88 no CBC was done today Objective - Vital Signs Vital signs: Vital Signs Temp 97.9 F 09/12/24 07:03 Pulse 61 09/12/24 07:03 Resp 18 09/12/24 07:03 BP 148/94 09/12/24 07:03 Pulse Ox 99 09/12/24 07:03 FiO2 Intake & Output 09/11/24 09/12/24 09/12/24 18:59 06:59 18:59 Intake Total 1080 200 Balance 1080 200 Intake: Intake, IV Titration 200 Amount Ampicillin-Sulbactam 3 gm 200 In Sodium Chloride 0.9% 100 ml @ 200 mls/hr IVPB Q6HR [facility] Rx#:[id number] Oral 1080 Other: Voiding Method Toilet Toilet Toilet # Voids 1 3 - Exam GENERAL DESCRIPTION: Middle-age female up in bed in no distress HEENT : Right side of the chin did have minimal swelling no significant redness or drainage RESPIRATORY SYSTEM: Unlabored breathing , decreased breath sounds at bases HEART: S1 S2 regular rate and rhythm , ABDOMEN: Soft , no tenderness EXTREMITIES: No edema feet - Labs CBC & Chem 7: 09/11/24 06:05 09/12/24 04:25 Assessment and Plan (1) Facial cellulitis Status: Acute Code(s): L03.211 - CELLULITIS OF FACE SNOMED Code(s): 870689957 (2) Infected tooth Status: Acute Code(s): K04.7 - PERIAPICAL ABSCESS WITHOUT SINUS SNOMED Code(s): 272624452 Plan: 1patient presented to hospital with right side chin area pain swelling and redness that has been going on for about a week failing outpatient oral amoxicillin therapy concerning for possible dental origin did have a CT did not show any drainable abscess with a repeat CT at this facility did not show any abscess 2-patient has been evaluated by oral surgery concerning for infected tooth #27 and planning for extraction in the outpatient setting apparently patient is scheduled to see the oral surgeon on Sunday, in view of improvement with Unasyn, she will be finishing therapy with oral Augmentin x 10 days Dictation was produced using [employer] dictation software. please excuse any grammatical, word or spelling errors. Time with Patient: Less than 30
== END 2024-09-12 15:19 | disposition home or self-care (01) | DRG 383 ==
LOC: 5NMEDONC 15:12
PROVIDERS: ADMIT Student in an Organized Health Care Education/Training Program; ATTEND Student in an Organized Health Care Education/Training Program
DX: L03.211 Cellulitis of face (principal); I10 Essential (primary) hypertension; J45.20 Mild intermittent asthma, uncomplicated; E89.0 Postprocedural hypothyroidism; E66.9 Obesity, unspecified; Z68.36 Body mass index [BMI] 36.0-36.9, adult; E55.9 Vitamin D deficiency, unspecified; G47.00 Insomnia, unspecified; M51.369 Other intervertebral disc degeneration, lumbar region without mention of lumbar back pain or lower extremity pain; L02.01 Cutaneous abscess of face; K04.7 Periapical abscess without sinus; Z87.891 Personal history of nicotine dependence; Z86.14 Personal history of Methicillin resistant Staphylococcus aureus infection; Z79.890 Hormone replacement therapy; Z79.899 Other long term (current) drug therapy
CPT/HCPCS: 70487; 80048; 80202; 82565; 85025; 85027; 85652; 86140; 87070